=== PATIENT | male | born 1960 | race Caucasian/White ===

== ENCOUNTER 2017-05-26 07:53 | Day surgery (SDC) | payer OTHER ==
[~2017-05-26] VITALS: Ht 177.8 cm; Wt 85.4 kg
[2017-05-26] MEDS ORDERED: IOHEXOL 350 MG/ML 100 ML BTL (for Cath Lab) OTHER ONE (07:54)
[2017-05-26] MEDS ORDERED: RANE1000 PO (09:02)
[2017-05-26] MEDS ORDERED: GLIM2TAB PO (09:02)
[2017-05-26] MEDS ORDERED: ATOR20TA15 PO (09:02)
[2017-05-26] MEDS ORDERED: NITR1SUB3 SL (09:02)
[2017-05-26] MEDS ORDERED: METF500T PO (09:02)
[2017-05-26] MEDS ORDERED: EMPA1TAB3 PO (09:02)
[2017-05-26] MEDS ORDERED: TRAD5TAB PO (09:02)
[2017-05-26] MEDS ORDERED: METO25TA3 PO ×2 (09:02→14:49)
[2017-05-26] MEDS ORDERED: ASPI-516 CHEW (09:02)
[2017-05-26] MEDS ORDERED: GABA100C4 PO (09:02)
[2017-05-26 09:03] VITALS: BP 130/72; PULSE 41; RESP 18; TEMP 97.6; O2SAT 95
[2017-05-26] MEDS ORDERED: HEPARIN SODIUM - IV 10,000 UNITS/10 ML VIAL ONE (09:18)
[2017-05-26] MEDS ORDERED: MIDAZOLAM HCL 2 MG/2 ML VIAL ONE (09:18)
[2017-05-26] MEDS ORDERED: HEPARIN-NS/PF FLUSH BAG 2,000 ML IV FLUSH ONE (09:18)
[2017-05-26] MEDS ORDERED: NITROGLYCERIN INJ 5 ML ONE (09:18)
[2017-05-26] MEDS ORDERED: NS 1000P @30 MLS/HR (KVO) IV SCH (09:30)
[2017-05-26] MEDS ORDERED: BIVALIRUDIN 250 MG VIAL ONE (10:32)
[2017-05-26] MEDS ORDERED: STERILE WATER FOR INJECTION 10 ML VIAL ONE (10:32)
[2017-05-26] MEDS ORDERED: CLOPIDOGREL 300 MG TAB ONE (10:52)
--- NOTE | 2017-05-26 11:06 | CATHPROC ---
elicit HIS Report Study Information Study Number Admission Scheduled Start Study Start [id number] May 26 2017 7:53AM 05/26/2017 May 26 2017 10:04AM [facility] Cardiac Catheterization Admit Source Facility Department Other [facility] - Furniture Maker Physician and Clinical Staff Initial Cheng Hoff Scientific Artist Carola Easley,IAN Recorder Ramila Wang,RT(R) Scrub [place],RT(R) Procedures Performed Procedure Location (Site) Vessel Name Coronary Angiograms LCA Left Coronary Coronary Angiograms RCA Right Coronary Drug Eluting Inflatio CIRC Prox CIRC Drug Eluting Inflatio LAD Prox Left Coronary L Heart Cath PTCA LAD Prox Left Coronary PTCA ADD ON'S Wire insertion Radial (right) Radial Art. Equipment Time Senior Catering Sales Manager Description Size Mfg Part Number Used/Scraped COPILOT VALVE, BLEEDBACK [id number] 10:36 [employer] Used CONTROL *[id number] TRANSDUCER, TRUWAVE [id number] 10:14 MILLER BELL * Used W/STOCKCOCK *[id number] *[id number] [id number] *[id number] 10:14 UpRace PACK, CCL CUSTOM * Used *[id number] 10:14 [employer]Race SUPPORT, ARTERIAL ADULT 90114 *[id number] Used [id number] 10:14 ID.me PACER PEN, SKIN DUAL W/ RULER * Used *[id number] 10:36 MEDTRONIC BALLOON, 2.5 X 12MM EUPHORA 12MM Used *[id number] 10:14 MEDTRONIC JR 5.0 DXTERITY CATHETER fr 5 [id number] Used [id number] 10:46 MEDTRONIC STENT, 2.5 26MM ARYA 2.5 26MM Used *[id number] 10:43 MEDTRONIC STENT, 3.0 18MM ARYA 3.0 18MM Used *[id number] 10:34 Pushpay 30 MERLIN INDEFLATOR Used *[id number] BAND, RADIAL COMPRESSION TR [id number] 10:56 Verdi[employer] MEDICAL 24CM Used SHORT 24 *[id number] SHEATH, FR6 RADIAL PRELUDE 10:14 Pushpay FR 6 [id number] Used EASE 11CM [id number] 10:14 Pushpay WIRE, EXCHANGE 260CM 3MMJ 260CM Used *[id number] 10:14 NYCOMED OMNIPAQUE, 350 MG, 150ML 150ML [id number] Used 10:34 NYCOMED OMNIPAQUE, 350 MG, 50ML 50ML [id number] Used [id number] 10:14 CORNING MEDICAL BLANKET,WARM AIR CCL * Used *[id number] WIRE, RUNTHROUGH NS FLOPPY [id number] 10:35 [employer] MEDICAL 180CM Used .014 180CM *[id number] Equipment Model, Serial, Lot Number and Expiration Data Description Model Number Serial Number Lot Number Expiration Date STENT, 3.0 18MM ARYA [id number] 11-09-2018 History: Current Medications Medication Dosage/Unit Route Frequency Last Date/Time Taken NTG SL Statins (any) ASA Glucophage LISINOPRIL LOPRESSOR History: Allergies Allergy Reaction No Known Allergies History: Risk Factors Family History of Hypertension Dyslipidemia Previous GA Previous Heart Failure Premature CAD Yes Yes No Yes Yes Prior Valve Prior PCI Prior PCIDate Prior CABG Surgery No Yes 03/10/2010 No Cerebrovascular Peripheral Artery Chronic Lung On Dialysis Diabetes Diabetes Therapy Disease Disease Disease No No No No Yes Oral History: Symptoms/Diagnosis Selection Items Angina-unstable History: CV Disease Selection Items Cardiomyopathy ischemic Known CAD GA History: Stress Tests Stress or Imaging Studies Performed No History: Other Disease Selection Items CAD History: Other Current Smoker No Labs Hgb (g/dl) Hct (%) RBC (MIL/MM3) WBC (l/cumm) Platelets (thousands) 11.60-17.00 35.00-51.00 4.00-5.90 4.00-11.00 150.00-450.00 14.8 43.9 4.9 5.6 96 Glucose (mg/dl) BUN (mg/dl) Creatinine (mg/dl) BUN:Creatinine (1:x) 74.00-106.00 7.00-18.00 0.50-1.30 10.00-20.00 81 16 0.9 17.8 Na (meq/l) K (meq/l) Cl (meq/l) CO2 (mmol/L) Ca (mg/dl) 136.00-145.00 3.50-5.10 98.00-107.00 21.00-32.00 8.50-10.10 141 3.8 99 23 9 PT (sec) INR (PTT:PT) 9.80-11.60 0.90-1.10 10.7 1 CPK-MB (ng/ML) 0.50-3.60 Not Drawn Medication Medication Total Dose (Bolus/Oral) Medication Total Dosage/Unit 1% XYLOCAINE 20 mL ANGIOMAX BOLUS 13 mL FENTANYL 50 mcg HEPARIN 5000 units PLAVIX 600 mg RADIAL COCKTAIL 5 mL (Bolus) VERSED 2 mg Medications (Bolus/Oral) Medication Time Given Dosage/Unit Administered By Reason VERSED 05/26/2017 10:17:23 AM 2 mg Carola Easley 2 mg VERSED given in lab by Carola Easley RN via Peripheral IV. FENTANYL 05/26/2017 10:18:00 AM 50 mcg Carola Easley 50 mcg FENTANYL given in lab by Carola Easley RN via Peripheral IV. 1% XYLOCAINE 05/26/2017 10:19:35 AM 20 mL Cheng Arambula 20 mL 1% XYLOCAINE given in lab by Cheng Arambula in Right Radial via Subcutaneous. RADIAL COCKTAIL 05/26/2017 10:24:00 AM 5 mL (Bolus) Carola Easley 5 mL (Bolus) RADIAL COCKTAIL given in lab by Carola Easley RN via Radial. Using D5W. 200 nitro HEPARIN 05/26/2017 10:24:45 AM 5000 units Carola Easley 5000 units HEPARIN given in lab by Carola Easley RN in Right Radial via Peripheral IV. ANGIOMAX BOLUS 05/26/2017 10:37:10 AM 13 mL Carola Easley 13 mL ANGIOMAX BOLUS given in lab by Carola Easley RN in Left Antecubital via Peripheral IV. PLAVIX 05/26/2017 10:53:49 AM 600 mg Carola Easley 600 mg PLAVIX given in lab by Carola Easley RN via Oral. Medication (Drip) Medication Time Given Dosage/Unit Concentration/Unit Diluent (ml) Solution ANGIOMAX DRIP 05/26/2017 10:37:14 AM 1.751 mg/kg/hr 250 mg 50 NaCl .9 1.751 mg/kg/hr ANGIOMAX DRIP given in lab by Carola Easley RN via Peripheral IV. Pump/Drip Flow = 29.9 ml/hr using NaCl .9 with a concentration of 250 mg in 50 ml. IV Solutions 05/26/2017 10:07:26 AM 0 mL (IV) 500 NaCl .9 Patient arrived on IV Solutions in Left Antecubital via Peripheral IV. Pump/Drip Flow = 20 ml/hr usin g NaCl .9. Initial Case Assessment Cardiovascular HR Rhythm NIBP Chest Pain 66 reg 139/85 0 Edema Present Skin color Skin None Normal Warm Circulatory - Right Pulses Dorsalis Pedis Femoral Radial 1 2 2 Scale (0,1,2,3,4,d) Scale (0,1,2,3,4,d) Circulatory - Lower Extremities Color Lower Right Normal Neurological State Oriented to time-place- Alert Moves all extremities person Respiration - General Respiration Rate SpO2 (%) (B/min) 15 99 Final Case Assessment Cardiovascular HR Rhythm Chest Pain 65 reg 0 Edema Present Skin color Skin None Normal Warm Circulatory - Right Pulses Dorsalis Pedis Femoral Radial 1 2 2 Scale (0,1,2,3,4,d) Scale (0,1,2,3,4,d) Circulatory - Lower Extremities Color Lower Right Normal Neurological State Oriented to time-place- Alert Moves all extremities person Respiration - General Respiration Rate SpO2 (%) (B/min) 18 95 Chronological Log Time Study Chronological Log 9:55:00 Patient Name, D.O.B, / Armband Verified By R.N. 9:55:43 Patient arrived via Bed. 10:00:00 Consent signed by the physician and the patient and verified by the Furniture Maker staff. 10:01:00 Pre-op and post- op instructions given; patient acknowledges understanding of instructions. 10:02:30 Verbal Stimulation=2 Physical Stimulation=2 Airway=2 Respiration=2 TOTAL=8. (0=absent, 1=li mited, 2=present) 10:04:16 Allens test performed on the right radial and ulnar artery with a positive result by Bella schmidt Vitals capture started with the following parameters, Patient=Adult, Interval=5 min, Initial Pr nmnhnh=034 mmHg, 10:04:24 Deflation Rate=5 mmHg, Cuff placed on left Arm 10:05:07 Reference ECG taken 10:05:33 HR=63 bpm, OCKK=896/85 mmhg, SpO2=99.0 %, Resp=9 B/min, Pain=0, [place]=10, Garcia=2 10:07:03 Patient has been NPO for More than 6Hrs. 10:07:05 Skin Breakdown-none 10:07:16 Patient Warmer Placed on the Table. 10:07:18 A # 20 IV was noted in the Antecubital (left). Grade = 0 10:07:26 Patient arrived on IV Solutions in Left Antecubital via Peripheral IV. Pump/Drip Flow = 20 ml/hr using NaCl .9. 10:07:43 History and physical on the chart or being dictated. Assessment: Initial Case, HR=66 BPM, Rhythm=reg, ENKQ=705/85 mmhg, Chest Pain=0, Edema=None, Co radha=Normal, Skin = Warm Right Pulses: Farooq Ped=1, Femoral=2, Radial=2 10:07:47 Lower Right Extremities: Color=Normal Neurological: State=Alert, Ox3, GANDHI Respiration: Resp=15 B/min, SpO2=99 % 10:08:30 Right Radial and groin(s) prepped with 2% chlorhexidine, and draped after a 3 min. waiting time. 10:08:38 MD paged 10:10:01 HR=65 bpm, TDCZ=672/83 mmhg, SpO2=99.0 %, Resp=15 B/min, Pain=0, [place]=10, Garcia=2 10:12:01 Pressure channel 1 zeroed. 10:15:00 HR=66 bpm, FPOU=484/85 mmhg, PtI0=603 %, Resp=13 B/min, Pain=0, [place]=10, Garcia=2 10:17:23 2 mg VERSED given in lab by Carola Easley, IAN via Peripheral IV. 10:18:00 50 mcg FENTANYL given in lab by Carola Easley, IAN via Peripheral IV. 10:18:19 MD arrived. Time Out. Correct patient, correct procedure, correct physician, power injector not loaded with contrast with surgical 10:19:12 team present. Time Out Concurred by MD and individual staff in procedure. 10:19:23 Case Start 10:19:27 Verbal Stimulation=2 Physical Stimulation=2 Airway=2 Respiration=2 TOTAL=8. (0=absent, 1=li mited, 2=present) 10:19:35 20 mL 1% XYLOCAINE given in lab by Chegn Arambula in Right Radial via Subcutaneous. 10:20:03 HR=67 bpm, RQUJ=439/76 mmhg, SpO2=99.0 %, Resp=11 B/min, Pain=0, [place]=10, Garcia=2 10:24:00 5 mL (Bolus) RADIAL COCKTAIL given in lab by Carola Easley, IAN via Radial. Using D5W. 20 0 nitro 10:24:13 Access site was Radial Artery.rt 10:24:20 A wire was inserted via Radial (right). A SHEATH, FR6 RADIAL PRELUDE EASE 11CM FR 6 was advanced into the Radial (right) using the Perc utaneous 10:24:31 technique. A JR 5.0 DXTERITY CATHETER fr 5 was advanced over a wire. OMNIPAQUE, 350 MG, 150ML 150ML was us ed for 10:24:45 injections. 10:24:45 5000 units HEPARIN given in lab by Carola Easley RN in Right Radial via Peripheral IV. 10:25:04 HR=66 bpm, DIRJ=626/66 mmhg, SpO2=93.0 %, Resp=7 B/min, Pain=0, [place]=10, Garcia=2 Recorded Pressure: LV, HR=69, Condition=Condition 1 10:26:02 (Left Ventricle) LV 90/7/17 Recorded Pressure: LV, Ao, HR=69, Condition=Condition 1 10:26:13 (Left Ventricle) LV 91/16/19, (Aorta) Ao 90/58/72 10:26:58 The RCA was injected and visualized at various angles. OMNIPAQUE, 350 MG, 150ML 150ML used . After removing the current catheter a JL 3.5 INFINITI CATHETER FR 5 was advanced over a WIRE, E XCHANGE 260CM 10:28:07 3MMJ 260CM. Recorded Pressure: Ao, HR=72, Condition=Condition 1 10:29:02 (Aorta) Ao 82/51/65 10:30:01 HR=70 bpm, VWBS=805/55 mmhg, SpO2=93 %, Resp=9 B/min, Pain=0, [place]=10, Garcia=2 10:30:32 The LCA was injected and visualized at various angles. OMNIPAQUE, 350 MG, 150ML 150ML used . After removing the current catheter a JL 4.0 GUIDE CATHETER FR 6 was advanced over a WIRE, EXCH LG 260CM 10:32:06 3MMJ 260CM. 10:33:34 OMNIPAQUE, 350 MG, 50ML 50ML and 30 MERLIN INDEFLATOR added. 10:34:17 A WIRE, RUNTHROUGH NS FLOPPY .014 180CM 180CM was inserted via Radial (right). 10:35:00 HR=68 bpm, ROVQ=141/62 mmhg, SpO2=93.0 %, Resp=10 B/min, Pain=0, [place]=10, Garcia=2 10:37:10 13 mL ANGIOMAX BOLUS given in lab by Carola Easley RN in Left Antecubital via Periphera l IV. 1.751 mg/kg/hr ANGIOMAX DRIP given in lab by Carola Easley RN via Peripheral IV. Pump/Drip Flow = 29.9 ml/hr 10:37:14 using NaCl .9 with a concentration of 250 mg in 50 ml. 10:39:43 Interventional wire has crossed the lesion 10:39:59 HR=68 bpm, GWRX=739/62 mmhg, SpO2=94.0 %, Resp=10 B/min, Pain=0, [place]=10, Garcia=2 A BALLOON, 2.5 X 12MM EUPHORA 12MM was inserted over WIRE, RUNTHROUGH NS FLOPPY .014 180CM 180C M via 10:40:30 the LAD Prox. A BALLOON, 2.5 X 12MM EUPHORA 12MM over a WIRE, RUNTHROUGH NS FLOPPY .014 180CM 180CM in the LA D 10:41:10 Prox was inflated using a 30 MERLIN INDEFLATOR at 10 merlin for 8 sec. A BALLOON, 2.5 X 12MM EUPHORA 12MM over a WIRE, RUNTHROUGH NS FLOPPY .014 180CM 180CM in the LA D 10:41:27 Prox was inflated using a 30 MERLIN INDEFLATOR at 12 merlin for 10 sec. 10:41:46 Balloon Removed. A STENT, 3.0 18MM ARYA 3.0 18MM was advanced through a JL 4.0 GUIDE CATHETER FR 6 over a WIRE, 10:42:52 RUNTHROUGH NS FLOPPY .014 180CM 180CM. A STENT, 3.0 18MM ARYA 3.0 18MM was deployed using a 30 MERLIN INDEFLATOR at 19 atmospheres for 10 seconds in 10:43:24 the LAD Prox. 10:44:50 Delivery device removed 10:45:01 HR=68 bpm, IOJI=568/64 mmhg, SpO2=94.0 %, Resp=10 B/min, Pain=0, [place]=10, Garcia=2 10:45:23 runthru wire redirected to CXR 10:46:03 Interventional wire has crossed the lesion A STENT, 2.5 26MM ARYA 2.5 26MM was advanced through a JL 4.0 GUIDE CATHETER FR 6 over a WIRE, 10:46:58 RUNTHROUGH NS FLOPPY .014 180CM 180CM. A STENT, 2.5 26MM ARYA 2.5 26MM was deployed using a 30 MERLIN INDEFLATOR at 14 atmospheres for 10 seconds in 10:47:14 the CIRC Prox. 10:48:04 Delivery device removed 10:48:28 The LCA was injected and visualized at various angles. OMNIPAQUE, 350 MG, 150ML 150ML used . 10:49:00 Catheter was removed Assessment: Final Case, HR=65 BPM, Rhythm=reg, Chest Pain=0, Edema=None, Color=Normal, Skin = W arm Right Pulses: Farooq Ped=1, Femoral=2, Radial=2 10:49:21 Lower Right Extremities: Color=Normal Neurological: State=Alert, Ox3, GANDHI Respiration: Resp=18 B/min, SpO2=95 % 10:50:02 HR=68 bpm, LUER=498/69 mmhg, SpO2=95 %, Resp=24 B/min, Pain=0, [place]=10, Garcia=2 10:50:16 Case End 10:53:49 600 mg PLAVIX given in lab by Carola Easley, IAN via Oral. 10:55:03 HR=66 bpm, VBXQ=754/71 mmhg, SpO2=96 %, Resp=24 B/min, Pain=0, [place]=10, Garcia=2 10:55:25 Catheter(s) removed without difficulty Radial Compression Device Used. 9 mLs of air placed in BAND, RADIAL COMPRESSION TR SHORT 24 24C M. Affected 10:55:34 hand 96 % O2 saturation. 10:56:22 Sterile dressing applied to site 10:56:23 No case complications noted. 10:56:24 Cine recording checked. 10:56:27 Bedside Report will be given. 10:56:29 Implantable Device card placed in patient's chart. 10:56:33 Verbal Stimulation=2 Physical Stimulation=2 Airway=2 Respiration=2 TOTAL=8. (0=absent, 1=li mited, 2=present) 10:56:42 A Left Heart Cath was performed. 10:56:46 Clinical correlaton risk stratification. 11:00:04 HR=65 bpm, PVHV=387/74 mmhg, SpO2=96 %, Resp=23 B/min, Pain=0, [place]=10, Garcia=2 11:00:14 Vitals capture stopped. End Study - Contrast Media Used In Study Contrast Total Opened (mL) Total Used (mL) Total Wasted (mL) Omnipaque 100 100 0 End Study - Maximum Contrast Load Max Contrast Load (mL) 474.5 End Study - Radiation Exposure Fluoro Time (minutes) 6.5 End Study - Sheaths Sheaths Pulled By Sheath Hold Time (min) [place] End Study - Patient Disposition Complications Transferred To Interventional Outcome No Regular Bed successful
[2017-05-26] MEDS ORDERED: SODIUM CHLOR 0.9% 1000 ML INJ 1,000 ML IV SCH (11:08)
[2017-05-26] MEDS ORDERED: BIVALIRUDIN INJ 250 MG in SODIUM CHLORIDE 0.9% INJ 50 ML IV SCH (11:08)
[2017-05-26] MEDS ORDERED: MISC INFORMATION XX ONE (11:15)
[2017-05-26] MEDS ORDERED: LIDOCAINE 2% JELLY 30 ML TUBE TOP PRN (11:15)
[2017-05-26] MEDS ORDERED: ATOR40TA16 PO (11:20)
[2017-05-26] MEDS ORDERED: ISOS30TA3 PO (11:21)
[2017-05-26] MEDS ORDERED: BACITRACIN OINT 0.9 GM PKT TOP ONE (12:30)
[2017-05-26] MEDS ORDERED: oxyCODONE/ACETAMINOPHEN 5 MG/325 MG TAB PO PRN (12:30)
--- NOTE | 2017-05-26 13:13 | MA ---
cc: Cheng Arambula MD 05/26/2017 DATE OF PROCEDURE: 05/26/2017 INDICATION: Unstable angina. PROCEDURE: 1. Fluoroscopy with interpretation. 2. Left heart catheterization. 3. Coronary angiography. 4. Percutaneous intervention with drug-eluting stents to the proximal left anterior descending coronary artery and mid left circumflex coronary artery. METHOD: Risks, benefits and alternatives were discussed with the patient. The patient understood and consented to the procedure. The patient was brought to the catheterization lab and placed on the catheterization table. The right wrist was prepped and draped in sterile fashion. The right wrist was anesthetized with 2% lidocaine. The right radial artery was cannulated. A 6-Gambian 7 cm sheath was placed without difficulty. LEFT HEART CATHETERIZATION: A 6-Gambian JR5 catheter was advanced across the aortic valve without difficulty. Intraventricular hemodynamics measured at 100/5 mmHg. CORONARY ANGIOGRAPHY: 1. Left main coronary is short, but angiographically normal. 2. Left anterior descending coronary has a 95% proximal stenosis with SENAIT 2 flow. There are stents throughout the entire proximal, mid and distal segments. 3. Left circumflex has a 75 percent stenosis in the mid segment, which leads to a 40% stenosis in the first obtuse marginal branch. 4. Right coronary artery is occluded in the proximal to mid segment, there is left to right collateralization. The posterior descending and posterolateral branches are visualized, but smaller caliber size. PERCUTANEOUS INTERVENTION: Left coronary circulation was selectively engaged with a 6-Gambian JL4 catheter. The Angiomax was administered throughout the entire procedure to maintain appropriate anticoagulation. A 0.014 inch, 180 cm Terumo Runthrough wire was navigated down the distal left anterior descending coronary without difficulty. A 2.5 x 15 mm RX balloon was advanced to the proximal left anterior descending coronary artery and deployed at 2 sequential inflations with some watermelon seeding. A 3.0 x 18 mm RX Resolute Ghanshyam stent was advanced to the proximal left anterior descending coronary artery and deployed. Repeat angiography showed no residual stenosis, SENAIT 3 flow. Attention was then directed towards the circumflex coronary artery. A 0.014 inch Terumo wire was navigated down the distal first obtuse marginal branch. A 2.5 x 26 mm RX Resolute Ghanshyam stent was advanced down to the proximal extending in the mid left circumflex coronary and deployed. Repeat angiography showed no residual stenosis, SENAIT 3 flow. Wires removed. Guide catheter removed. HemoBand applied. CONCLUSIONS: 1. Severe 3-vessel [place] coronary artery disease with chronically occluded right coronary artery. 2. Successful percutaneous intervention with drug-eluting stents to the proximal left anterior descending and mid left circumflex coronary arteries. 3. Normal left-sided filling pressure. PLAN: Given the stent extending through the entire course of the left anterior descending coronary I am not sure where he would have a good graftable target. Plus the stenosis tubular and easily approachable. The right is well collateralized, so we decided to proceed with percutaneous intervention. We will initiate aggressive medical therapy, which would include long-acting nitrate, beta alia, aspirin, Plavix and statin. We will see how he does throughout the course of today. If he does really well, we may possibly send him home. MD KAREN Tan/TL/rr , 11:12 AM , 11:48 AM
[2017-05-26] MEDS ORDERED: PILL SPLITTER OTHER PRN (15:00)
[2017-05-26] MEDS ORDERED: DEXTROSE 50% IN WATER 50 ML VIAL(D50) IV PUSH PRN (18:00)
[2017-05-26] MEDS ORDERED: GLUCAGON 1 MG/ML VIAL OTHER PRN (18:00)
[2017-05-26 20:00] VITALS: BP 138/76; PULSE 67; PULSE 69; RESP 20; TEMP 98.2; O2SAT 98
[2017-05-26 21:00] VITALS: PULSE 68
[2017-05-26] MEDS ORDERED: MEDIUM DOSE INSULIN NOVOLOG SUPPLEMENTAL SCALE SQ SCH (21:00)
[2017-05-26] MEDS: METOPROLOL TARTRATE 25 MG TAB PO SCH (21:23)
[2017-05-26 22:00] VITALS: PULSE 66
[2017-05-26 23:00] VITALS: PULSE 70
[2017-05-27] VITALS (9 sets, daily range): BP systolic 134–144; BP diastolic 75–83; PULSE 62–72; RESP 18–20; TEMP 97.8–98; O2SAT 96–98
[2017-05-27 06:25] LABS: AUTOMATED NEUTROPHIL # 4.4 TH/MM3 (1.8-7.7); BASOPHIL % 0.1 % (0.0-2.0); EOSINOPHIL # 0.1 TH/MM3 (0-0.4); EOSINOPHIL % 1.7 % (0.0-4.0); HEMATOCRIT 43.3 % (39.0-51.0); HEMOGLOBIN 14.8 GM/DL (13.0-17.0); LYMPH % 16.7 % (9.0-44.0); MEAN CELL VOLUME 87.8 FL (80.0-100.0); MEAN CORPUSCULAR HGB CONC 34.2 % (32.0-36.0); MEAN PLATELET VOLUME 9.9 FL (7.0-11.0); MONO % 10.5 % (0.0-8.0); MONOCYTE # 0.6 TH/MM3 (0-0.9); PLATELET COUNT 83 TH/MM3 (150-450); RED BLOOD COUNT 4.93 MIL/MM3 (4.50-5.90); RED CELL DISTRIBUTION WIDTH 14.6 % (11.6-17.2); WHITE BLOOD COUNT 6.2 TH/MM3 (4.0-11.0)
[2017-05-27 06:41] LABS: BICARBONATE 26.6 MEQ/L (21.0-32.0); CALCIUM 8.4 MG/DL (8.5-10.1); CREATININE 0.69 MG/DL (0.60-1.30)
[2017-05-27 06:44] LABS: CHOLESTEROL/ HDL RATIO 1.89 RATIO; HDL CHOLESTEROL 45.9 MG/DL (40.0-60.0)
--- NOTE | 2017-05-27 07:35 | PD.CARD.PN ---
Subjective Subjective Remarks Doing well today. No issue with right wrist access site. No chest pain, shortness of breath, or palpitations. Objective Medications Current Medications Medications (Trade) Dose Ordered Sig/Court Route Start Time Stop Time Status Last Admin (Percocet 5-325 Mg) 1 tab Q4H PRN PO 05/26/17 12:30 (Xylocaine 2% Jelly) 1 applic UNSCH X1 PRN TOP 05/26/17 11:15 05/27/17 11:14 (Lopressor) 12.5 mg Q12HR PO 05/26/17 21:00 05/26/17 21:23 (Pill Splitter) 1 ea UNSCH PRN OTHER 05/26/17 15:00 (D50w (Vial) Inj) 50 ml UNSCH PRN IV PUSH 05/26/17 18:00 (Glucagon Inj) 1 mg UNSCH PRN OTHER 05/26/17 18:00 (NovoLOG SUPPLEMENTAL SCALE) 1 ACHS SLIDING SCALE SQ 05/26/17 21:00 Vital Signs / I&O Vital Signs Date Time Temp Pulse Resp B/P (MAP) Pulse Ox O2 Delivery O2 Flow Rate FiO2 05/27/17 07:00 72 05/27/17 00:00 97.8 64 20 134/78 (96) 98 05/26/17 20:00 98.2 69 20 138/76 (96) 98 05/26/17 11:11 91 Room Air 05/26/17 09:03 97.6 41 18 130/72 (91) 95 I/O 05/26/17 05/26/17 05/26/17 05/27/17 05/27/17 05/27/17 07:00 15:00 23:00 07:00 15:00 23:00 Intake Total 1 ml Balance 1 ml Intake IV Total 1 ml Physical Exam GENERAL: Well-developed well-nourished. In no acute distress. NECK: No carotid bruits. No JVD. CARDIOVASCULAR: Regular rate and rhythm. No murmur appreciated. Right radial site clean. RESPIRATORY: No accessory muscle use. Clear to auscultation. Breath sounds equal bilaterally. MUSCULOSKELETAL: No clubbing or cyanosis. No edema. NEUROLOGICAL: Awake and alert. Normal speech. Laboratory Laboratory Tests Test 05/27/17 04:38 White Blood Count 6.2 TH/MM3 Red Blood Count 4.93 MIL/MM3 Hemoglobin 14.8 GM/DL Hematocrit 43.3 % Mean Corpuscular Volume 87.8 FL Mean Corpuscular Hemoglobin 30.0 PG Mean Corpuscular Hemoglobin Concent 34.2 % Red Cell Distribution Width 14.6 % Platelet Count 83 TH/MM3 Mean Platelet Volume 9.9 FL Neutrophils (%) (Auto) 71.0 % Lymphocytes (%) (Auto) 16.7 % Monocytes (%) (Auto) 10.5 % Eosinophils (%) (Auto) 1.7 % Basophils (%) (Auto) 0.1 % Neutrophils # (Auto) 4.4 TH/MM3 Lymphocytes # (Auto) 1.0 TH/MM3 Monocytes # (Auto) 0.6 TH/MM3 Eosinophils # (Auto) 0.1 TH/MM3 Basophils # (Auto) 0.0 TH/MM3 CBC Comment AUTO DIFF Blood Urea Nitrogen 10 MG/DL Creatinine 0.69 MG/DL Random Glucose 93 MG/DL Calcium Level 8.4 MG/DL Sodium Level 139 MEQ/L Potassium Level 3.8 MEQ/L Chloride Level 104 MEQ/L Carbon Dioxide Level 26.6 MEQ/L Anion Gap 8 MEQ/L Estimat Glomerular Filtration Rate 119 ML/MIN Total Creatine Kinase 34 U/L Triglycerides Level 106 MG/DL Cholesterol Level 87 MG/DL LDL Cholesterol 20 MG/DL HDL Cholesterol 45.9 MG/DL Cholesterol/HDL Ratio 1.89 RATIO Assessment and Plan Assessment and Plan 56-year-old male admitted for cardiac catheterization for unstable angina Coronary artery disease: Cardiac catheterization showed severe 3 vessel [place] coronary disease with chronically occluded right coronary artery. Performed PCI with drug-eluting stents to the proximal LAD and mid left circumflex. Imdur and Plavix added. Continue aspirin, statin, and Ranexa. Barrie Sheriff May 27, 2017 07:35
--- NOTE | 2017-05-27 08:15 | HHI.DS ---
Discharge Summary Admission Date Discharge Date: May 27, 2017 Admitting Diagnosis unstable angina Procedures [facility] with PCI MAHESH LAD and LCx Brief History presented to outpatient department with exertional chest pain consistent with prior angina CCS Class III CBC/BMP: 05/27/178 05/27/17 0438 Significant Findings Laboratory Tests Test 05/27/17 04:38 Platelet Count 83 TH/MM3 (150-450) Neutrophils (%) (Auto) 71.0 % (16.0-70.0) Monocytes (%) (Auto) 10.5 % (0.0-8.0) Platelet Estimate LOW (NORMAL) Calcium Level 8.4 MG/DL (8.5-10.1) Total Creatine Kinase 34 U/L (39-308) Cholesterol Level 87 MG/DL (120-200) Imaging GENERAL: SKIN: Warm and dry. HEAD: Normocephalic. EYES: No scleral icterus. No injection or drainage. NECK: Supple, trachea midline. No JVD or lymphadenopathy. CARDIOVASCULAR: Regular rate and rhythm without murmurs, gallops, or rubs. RESPIRATORY: Breath sounds equal bilaterally. No accessory muscle use. GASTROINTESTINAL: Abdomen soft, non-tender, nondistended. MUSCULOSKELETAL: No cyanosis, or edema. BACK: Nontender without obvious deformity. No CVA tenderness. Hospital Course no complications post procedure did well overnight Pt Condition on Discharge: Good Discharge Disposition: Discharge Home Discharge Instructions DIET: Follow Instructions for: Heart Healthy Diet Activities you can perform: Weight Bearing as Cheng Toth MD May 27, 2017 08:15
[2017-05-27] MEDS ORDERED: CLOPIDOGREL 75 MG TAB PO SCH (09:00)
[2017-05-27] MEDS ORDERED: ASPIRIN EC 81 MG TABEC PO SCH (09:00)
[2017-05-27] MEDS ORDERED: GABAPENTIN 100 MG CAP PO SCH (09:00)
[2017-05-27] MEDS ORDERED: ATORVASTATIN 40 MG TAB PO ONE (09:00)
[2017-05-27] MEDS ORDERED: RANOLAZINE 500 MG EXTENDED RELEASE TAB PO SCH (09:30)
[2017-05-27] MEDS: METOPROLOL TARTRATE 25 MG TAB PO SCH (09:44)
[2017-05-27] MEDS ORDERED: TRADJENTA 5 MG PO SCH (10:00)
[2017-05-27] MEDS ORDERED: JARDIANCE 25 MG PO SCH (10:00)
[2017-05-27] MEDS ORDERED: PLAV75TA29 PO (10:02)
[2017-05-27] MEDS ORDERED: GLIMEPIRIDE 2 MG TAB PO SCH (16:00)
--- NOTE | 2017-05-27 16:01 | EKG ---
Date Performed: 05/26/2017 Time Performed: 15:29:42 PTAGE: 56 years EKG: Sinus rhythm . Normal ECG NO PREVIOUS TRACING DOCTOR: Brennen Aguiar Interpretating Date/Time 05/27/2017 15:59:22
[2017-05-28] MEDS ORDERED: ISOSORBIDE MONONITRATE 30 MG CR TAB (IMDUR) PO SCH (07:00)
== END 2017-05-27 10:17 | disposition home or self-care (01) ==
LOC: HDOC 07:53 → HDIC 07:54 → HCIS 19:46 → HDOC 05-27 10:17
PROVIDERS: ATTEND Internal Medicine
DX: I25.110 Atherosclerotic heart disease of native coronary artery with unstable angina pectoris (principal); I10 Essential (primary) hypertension; E11.40 Type 2 diabetes mellitus with diabetic neuropathy, unspecified; E66.3 Overweight; Z98.61 Coronary angioplasty status; Z79.82 Long term (current) use of aspirin; Z79.02 Long term (current) use of antithrombotics/antiplatelets; Z68.27 Body mass index [BMI] 27.0-27.9, adult; Z79.84 Long term (current) use of oral hypoglycemic drugs
CPT/HCPCS: 80048; 80061; 82550; 82948; 85025; 86850; 86900; 86901; 92928; 92929; 93005; 93458; 99152; 99153; C1725; C1769; C1874; C1887; C1893; J0583; J1644; J2250; J3010; J7030; 85002; Q9967